=== PATIENT | female | born 1970 | race Caucasian/White ===

== ENCOUNTER → 2016-12-19 | Day surgery (SDC) | payer BC ==
[~2016-12-19] MED LIST: BUPIVACAINE/EPINEPHRINE 0.5% 50 ML VIAL ONE; KETOROLAC TROMETHAMINE 30 MG/ML (IVP) VIAL IV PUSH ONE; LACTATED RINGER'S 1000 ML INJ 1,000 ML ONE; ONDANSETRON HCL 4 MG/5 ML UDC ONE; PROPOFOL 200 MG/20 ML AMP IV ONE; ceFAZolin INJ 1,000 MG VIAL ONE
--- NOTE | 2016-12-19 17:59 | TN ---
cc: ANA WHITTAKER DATE OF SURGERY: 12/19/2016 PREOPERATIVE DIAGNOSIS 1. Internal derangement right knee. 2. Probable lateral meniscus tear of right knee. POSTOPERATIVE DIAGNOSIS Complex tear of the lateral meniscus. PROCEDURE 1. Arthroscopy right knee. 2. Arthroscopic lateral meniscectomy. SURGEON Ana Whittaker ANESTHESIA General. BLOOD LOSS Minimal. INDICATION This 46-year-old female catching, locking pain, anterior lateral aspect of the right knee. Investigative studies show evidence of a torn anterolateral meniscus. She presents for surgical treatment. PROCEDURE The patient brought to the operating room anesthetized in the supine position. The right leg was scrubbed with alcohol, followed by Hibiclens, followed by ChloraPrep and draped sterilely. Antibiotics were given within 1 hour time window a time-out was done. Inflow established anterior medially. The subtotal pouch unremarkable. Retropatellar surface showed grade 1 changes in minimal. The alignment patella seems satisfactory. There no loose bodies in the medial or lateral gutter. There was a normal-appearing medial compartment. The ACL was normal. The anterior compartment. The lateral compartment showed a parrot beak tear at approximately the 6 o'clock position of the lateral meniscus and significant tearing extending around to about the 8 o'clock position. In order to resect this though we had to interrupt the rim of the lateral meniscus leaving the rest of meniscus very unstable. Separate needle was placed laterally separate incision was placed. We ended up doing a subtotal lateral meniscectomy because each time we resected more, the residual portion was very unstable. We were able to leave a portion posteriorly. There was a lateral synovial plica this was resected. All fragments floated free the joint was irrigated copiously. Hemostasis was controlled. The portals were injected with 0.5% Marcaine with epinephrine and then closed with Steri-Strips and Benzoin. A sterile dressing was applied. The patient awakened and taken to recovery in satisfactory condition. Ana Whittaker MD [facility] [place] /3:05 PM /5:42 PM
== END | disposition home or self-care (01) ==
LOC: ESDC 12:30
PROVIDERS: ATTEND Orthopaedic Surgery Orthopaedic Surgery of the Spine
DX: S83.271A Complex tear of lateral meniscus, current injury, right knee, initial encounter (principal)
CPT/HCPCS: 01400; 29881; J0690; J1885; J3010; J7120